=== PATIENT | female | born 1995 | race Caucasian/White ===

== ENCOUNTER 2017-09-18 08:23 | Emergency (ER) | payer BC ==
[~2017-09-18] VITALS: Ht 165.1 cm; Wt 109.1 kg
[~2017-09-18 08:23] MED LIST: DEPO-PROVER400 MG/ML IM; LEXAPRO 5MG5 MG PO; NO HOME MEDICATIONS; NORCO 325 MG-7.1 TAB PO; TYLENOL/CODEINE1 ML PO
[2017-09-18 08:37] VITALS: BP 116/62; TEMP 99.1
[2017-09-18] MEDS ORDERED: PRENATAL1 TA7 PO (08:38)
[2017-09-18 09:17] LABS: COLLECTION METHOD CATHETER
[2017-09-18 09:26] LABS: BASO % 0.2 % (0.0-2.0); EOS % 0.4 % (0-4.0); GRAN # 8.6 (1.4-6.5); GRAN % 86.8 % (42.2-75.2); HEMATOCRIT 39.8 % (35.0-45.0); HEMOGLOBIN 13.3 g/dl (12.0-15.0); LYMPH # 0.7 (1.2-3.4); LYMPH % 7.1 % (20.0-51.0); MEAN CELL VOLUME 79 fl (80.0-95.0); MEAN CORPUSCULAR HEMOGLOBIN 26 pg (26.0-32.0); MEAN CORPUSCULAR HGB CONC 33 g/dl (33.0-37.0); MEAN PLATELET VOLUME 12.1 fl (7.4-10.4); MONO # 0.5 (0.1-0.6); MONO % 5.1 % (1.7-9.3); PLATELET COUNT 165 K/mm3 (130-400); RED BLOOD COUNT 5.03 M/mm3 (4.10-5.30); REDCELL DISTRIBUTION WIDTH-CV 13.3 % (11.5-14.5)
[2017-09-18 09:30] LABS: MUCOUS Present /lpf; PH 5 (5-8); URINE APPEARANCE Clear; URINE BACTERIA Rare /hpf; URINE BILIRUBIN Negative (NEGATIVE); URINE BLOOD Negative (NEGATIVE); URINE COLOR Yellow; URINE GLUCOSE Negative (NEGATIVE); URINE KETONE Negative (NEGATIVE); URINE LEUKOCYTE ESTERASE Negative (NEGATIVE); URINE NITRATE Negative (NEGATIVE); URINE PROTEIN(semi-quant) Negative (NEGATIVE); URINE RBC 0-2 /hpf; URINE UROBILINOGEN Negative (NEGATIVE)
[2017-09-18 09:35] LABS: ALBUMIN 3.8 gm/dL (3.5-5.0); BILIRUBIN,TOTAL 0.9 mg/dL (0.0-1.0); CALCIUM 8.4 mg/dL (8.4-10.2); CREATININE, serum 0.6 mg/dL (0.52-1.25); POTASSIUM 3.9 mmol/L (3.4-5.0); TOTAL PROTEIN 7.1 gm/dL (6.4-8.2)
[2017-09-18] MEDS ORDERED: PHENERGAN 25 TA25 MG PO (12:46)
[2017-09-18 13:01] VITALS: PULSE 84
== END 2017-09-18 13:01 | disposition home or self-care (01) ==
LOC: COL.ER 08:23
PROVIDERS: Nurse Practitioner
DX: O21.9 Vomiting of pregnancy, unspecified (principal); O20.0 Threatened abortion; Z3A.01 Less than 8 weeks gestation of pregnancy; Z88.0 Allergy status to penicillin; Z98.890 Other specified postprocedural states
CPT/HCPCS: J2405; J7030

== ENCOUNTER 2017-10-26 15:01 | Emergency (ER) | payer BC ==
[~2017-10-26] VITALS: Ht 165.1 cm; Wt 109.1 kg
[~2017-10-26 15:01] MED LIST changes: +PHENERGAN 25 TA25 MG PO; +PRENATAL1 TA7 PO
[2017-10-26 15:03] VITALS: BP 154/74; PULSE 93; TEMP 98.7
[2017-10-26 15:40] LABS: COLLECTION METHOD CLEAN CATCH
[2017-10-26 15:46] LABS: MUCOUS Present /lpf; PH 5 (5-8); URINE APPEARANCE Hazy; URINE BACTERIA None Seen /hpf; URINE BILIRUBIN Negative (NEGATIVE); URINE BLOOD Negative (NEGATIVE); URINE COLOR Amber; URINE GLUCOSE Negative (NEGATIVE); URINE KETONE Negative (NEGATIVE); URINE LEUKOCYTE ESTERASE Negative (NEGATIVE); URINE NITRATE Negative (NEGATIVE); URINE PROTEIN(semi-quant) 1+ (NEGATIVE); URINE RBC 0-2 /hpf
[2017-10-26 15:50] LABS: BASO % 0.2 % (0.0-2.0); EOS # 0.1 (0.0-0.7); EOS % 0.9 % (0-4.0); GRAN # 9.7 (1.4-6.5); HEMOGLOBIN 12.4 g/dl (12.0-15.0); LYMPH % 15.7 % (20.0-51.0); MEAN CELL VOLUME 80 fl (80.0-95.0); MEAN CORPUSCULAR HEMOGLOBIN 27 pg (26.0-32.0); MEAN CORPUSCULAR HGB CONC 34 g/dl (33.0-37.0); MEAN PLATELET VOLUME 12.2 fl (7.4-10.4); MONO # 0.7 (0.1-0.6); MONO % 5.7 % (1.7-9.3); PLATELET COUNT 189 K/mm3 (130-400); REDCELL DISTRIBUTION WIDTH-CV 13.4 % (11.5-14.5)
[2017-10-26] MEDS ORDERED: FLAGYL500 MG PO (17:04)
[2017-10-27] MEDS ORDERED: ZITHROMAX500 M2 PO (04:06)
== END 2017-10-26 17:23 | disposition home or self-care (01) ==
LOC: COL.ER 15:01
PROVIDERS: Emergency Medicine
DX: O20.0 Threatened abortion (principal); O23.591 Infection of other part of genital tract in pregnancy, first trimester; B96.89 Other specified bacterial agents as the cause of diseases classified elsewhere; Z3A.11 11 weeks gestation of pregnancy

== ENCOUNTER 2019-07-04 23:42 | Emergency (ER) | payer OTHER ==
[~2019-07-04] VITALS: Ht 165.1 cm; Wt 111.4 kg
[~2019-07-04 23:42] MED LIST changes: +FLAGYL500 MG PO; +ZITHROMAX500 M2 PO
[2019-07-04 23:45] VITALS: BP 113/58; TEMP 98
[2019-07-05 01:23] VITALS: PULSE 96
== END 2019-07-05 01:23 | disposition home or self-care (01) ==
LOC: COL.ER 23:42
DX: J06.9 Acute upper respiratory infection, unspecified (principal); Z98.890 Other specified postprocedural states